=== PATIENT | male | born 1995 | race Caucasian/White ===

== ENCOUNTER 2016-10-24 23:25 | Emergency (ER) | payer BC ==
[~2016-10-24] VITALS: Ht 185.4 cm; Wt 97.7 kg
[2016-10-24 23:29] VITALS: BP 100/63; TEMP 97.7
[2016-10-25 00:13] VITALS: PULSE 76
== END 2016-10-25 00:16 | disposition home or self-care (01) ==
LOC: COL.ER 23:25
DX: S61.011A Laceration without foreign body of right thumb without damage to nail, initial encounter (principal); W22.09XA Striking against other stationary object, initial encounter